=== PATIENT | male | born 1985 | race Caucasian/White ===

== ENCOUNTER 2022-05-24 22:40 | Emergency (ER) | payer BC, SELFPAY ==
[2022-05-24 22:42] VITALS: BP 135/76; PULSE 88; RESP 20; TEMP 36.5; O2SAT 98
--- NOTE | 2022-05-25 00:01 | ED.GENADULT ---
HPI - General Adult General Chief complaint: Back Pain/Injury Stated complaint: Muscles Spasms Back Time Seen by Provider: 05/24/22 22:55 History of Present Illness HPI narrative: This is a 36-year-old gentleman with history of back pain presenting ED with back spasms. Patient was on the floor tripped earlier in the week. He says that he fell and pulled his back at that time. For last several days he has been having intermittent spasms that have severely limited his movement. He has not taken any pain medications. He did try a electro shock therapy that is severe if he worsens his symptoms. He is presenting today for pain relief. The patient denies fever, chills, history of IV drug abuse, history of cancer, any midline tenderness, urinary or bowel incontinence. Related Data Allergies Allergy/AdvReac Type Severity Reaction Status Date / Time No Known Allergies Allergy Unknown Verified 07/09/06 11:57 Review of Systems Review of Systems: CONSTITUTIONAL: Denies night sweats. EYES: No eye pain ENT: Denies rhinorrhea CARDIOVASCULAR: Denies palpitations RESPIRATORY: Denies hemoptysis GASTROINTESTINAL: Denies hematemesis GENITOURINARY: Denies hematuria. SKIN: Denies rash MUSCULOSKELETAL: Denies myalgia. NEUROLOGIC: Denies weakness. PSYCHIATRIC: Denies delusions PMFSH Past Medical History Medical History Back pain Social History Social History (Updated 05/25/22 @ 00:03 by Mateo Burrell MD) Social History: Patient denies alcohol use, smokes pack cigarettes every day and half, use Exam Narrative: APPEARANCE: No apparent distress. Head atraumatic. EYES: PERRLA/EOMI, NOSE: Normal no drainage NECK: Supple, Trachea midline Back: no midline tenderness. The muscles over the right parathoracic spine are tight to the touch. No overlying skin changes. RESPIRATORY: CTAB, No increased work of breathing. CARDIOVASCULAR: S1S2 appreciated ABDOMINAL: Soft, nontender, nondistended, MUSCULOSKELETAl: No obvious deformities NEURO: Alert. Moving 4/4 extremities SKIN:: Warm, dry. Normal color PSYCHIATRIC: Normal affect Course Vital Signs Vital signs: Vital Signs Temperature 97.7 F 05/24/22 22:42 Pulse Rate 88 05/24/22 22:42 Respiratory Rate 20 05/24/22 22:42 Blood Pressure 135/76 05/24/22 22:42 Pulse Oximetry 98 05/24/22 22:42 Oxygen Delivery Room Air 05/24/22 22:42 Temperature 97.7 F 05/24/22 22:42 Pulse Rate 88 05/24/22 22:42 Respiratory Rate 20 05/24/22 22:42 Blood Pressure 135/76 05/24/22 22:42 Pulse Oximetry 98 05/24/22 22:42 Oxygen Delivery Room Air 05/24/22 22:42 Medical Decision Making MDM Narrative Medical decision making narrative: Patient's pain is positional and localized to the back without signs of cord compression or cauda equina. Normal neurologic exams. No fever noted. No significant risk factors for osteomyelitis or spinal epidural abscess. No symptoms or signs suggesting the pain is referred from an abdominal or source. There are no pulsatile masses on exam. Patient ambulates with a steady gait is felt to be a reasonable candidate for continued outpatient management. Vital Signs Vital Signs: Vital Signs Temperature 97.7 F 05/24/22 22:42 Pulse Rate 88 05/24/22 22:42 Respiratory Rate 20 05/24/22 22:42 Blood Pressure 135/76 05/24/22 22:42 Pulse Oximetry 98 05/24/22 22:42 Oxygen Delivery Room Air 05/24/22 22:42 Temperature 97.7 F 05/24/22 22:42 Pulse Rate 88 05/24/22 22:42 Respiratory Rate 20 05/24/22 22:42 Blood Pressure 135/76 05/24/22 22:42 Pulse Oximetry 98 05/24/22 22:42 Oxygen Delivery Room Air 05/24/22 22:42 Discharge Plan Discharge Clinical Impression: Strain of thoracic back region Patient Disposition: Home, Self-Care Condition: Stable Instructions: Antibiotic Form, Back Pain (ED) Additional Instructions:
[2022-05-25] MEDS: CYCLOBENZAPRINE HCL 10 MG TABLET PO (00:07)
[2022-05-25] MEDS: ACETAMINOPHEN 500 MG TABLET 1000 MG PO (00:07)
[2022-05-25] MEDS: IBUPROFEN 400 MG TABLET 800 MG PO (00:08)
== END 2022-05-25 00:27 | disposition home or self-care (01) ==
PROVIDERS: Emergency Provider Emergency Medicine; PCP Family Medicine
DX: S29.012A Strain of muscle and tendon of back wall of thorax, initial encounter (principal); F17.210 Nicotine dependence, cigarettes, uncomplicated; W01.0XXA Fall on same level from slipping, tripping and stumbling without subsequent striking against object, initial encounter
CPT/HCPCS: 99283; A9270

== ENCOUNTER 2022-06-20 09:33 | Outpatient (CLI) | payer BC, SELFPAY ==
--- NOTE | 2022-06-20 13:51 | WPDPFTINT ---
PFT Procedure Performed PFT Procedure Performed Spirometry with Pre/Post Bronchodilator Plethysmography (Lung Vol) Diffusing Cap (DLCO) Flow Vol Loop PFT Interpretation This is a pulmonary function test with pre and post-bronchodilator spirometry, plethysmography and diffusing capacity. The test was performed and results interpreted in accordance with the 2019 and 2005 ATS/ERS Task Force guidelines respectively using the Global Lung Function Initiative-2012 reference equations. Patient demonstrated good effort and cooperation. Reproducibility criteria were met. The quality of the pre bronchodilator spirometry maneuver was Grade B and post bronchodilator spirometry maneuver was Grade A. Findings: Spirometry:The contour the inspiratory and expiratory flow tracing are normal. The pre bronchodilator FVC is 6.86 L, 121% predicted. The pre bronchodilator FEV1 is 5.17 L, 114% predicted. The pre bronchodilator FEV1: FVC ratio is 75%. The post bronchodilator FVC is 6.97 L, representing a 2% increase. The post bronchodilator FEV1 is 5.41 L, representing a 5% increase. The post bronchodilator FEV1: FVC ratio is 78%. Plethysmography: The total lung capacity is 9.42 L, 128% predicted. Functional residual capacity is 4.82 L, 130% predicted. The residual volume was 2.56 L, 133% predicted. Diffusion capacity: The diffusing capacity unadjusted for hemoglobin and carboxyhemoglobin is 36.9, 108% predicted. The diffusing capacity adjusted for alveolar volume is 4.51, 94% predicted. Impression: The spirometry is normal without evidence of an obstructive abnormality. There is no significant improvement after inhaling a single dose of albuterol. The Total lung capacity is increased with a normal functional residual capacity and residual volume. This is an abnormal but nonspecific lung volume pattern. The diffusing capacity is normal. There are no prior studies for comparison
== END 2022-06-20 09:34 | disposition home or self-care (01) ==
PROVIDERS: PCP Family Medicine; Visit Provider Family Medicine
DX: R06.00 Dyspnea, unspecified (principal)
CPT/HCPCS: 94060; 94726; 94729

== ENCOUNTER 2022-07-08 08:05 | Outpatient (CLI) | payer BC, SELFPAY ==
--- NOTE | 2022-07-22 19:07 | WPDHOMESLEEP ---
Sleep Study - Home Unattended Date of Study: 07/08/22 Ordering Provider: Elida Fox DO Interpreting Provider: Elida Fox DO Home Sleep Study Type: Apnea Link Air Height: 1.83 m Weight: 104.326 kg Body Mass Index: 31.1 Neck Circumference (inches): 16 [place]: 20 Reason for Sleep Study Daytime hypersomnia, loud snoring Sleep History The patient is a 37-year-old male with tobacco use that had a sleep study ordered for evaluation of sleep apnea. The patient frequently awakens from sleep short of breath. He frequently awakens at night with heartburn, belching or cough. He frequently snores loud enough that others complain. He frequently has trouble sleeping when he has a cold. He frequently wakes up gasping for air throughout the night. He frequently has breathing problems at night observed by himself or others. He frequently sweats excessively at night. He frequently has heart palpitations or irregular heartbeats during the night. He frequently falls asleep during the day but rarely falls asleep while driving. He frequently has loss of muscle tone when extremely emotional. He occasionally has trouble at school or work due to sleepiness. He denies sleep paralysis and hypnagogic/ hypnopompic hallucinations. He denies having nightmares. He occasionally remembers his dreams. He frequently has thoughts racing through his mind. He rarely feels sad or depressed. He occasionally has anxiety. He denies having muscular tension. He denies noticing parts of his body jerk. He denies kicking during the night. He denies having crawling and aching feelings in his legs as well as leg pain during the night. He rarely grinds his teeth during sleep and never awakens with a morning jaw pain. He denies being bothered by pain during the day and being awakened by pain during the night. He denies waking up feeling stiff in the morning. He rarely wakes up with sore achy muscles. He rarely wakes up with pain in the neck, spine and other joints. He goes to bed between 10:00 p.m. and midnight on both weekdays and weekends. It takes him 30 minutes to fall asleep. He wakes up 5-6 times throughout the night to urinate or smoke a cigarette. It can take him 30 minutes to 2 hours to fall back asleep. He wakes up at 5:30 a.m. on weekdays and between 6:30-7 a.m. on the weekends. He typically gets 5-6 hours of sleep per night. He he will stay in bed for 10-15 minutes after waking up in the morning. He currently lives with his and 4 children. He does not consume any caffeinated beverages within 2 hours of bedtime. He does not engage in physical exercise before bedtime. He denies reading and watching television before falling asleep. He denies taking naps in the afternoon or the evening. He will drink 4-6 cups of caffeinated tea per day. He currently smokes 1 pack of cigarettes per day. He denies alcohol and recreational drug use. 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
[2022-07-23 03:15] VITALS: BMI 31.1
--- NOTE | 2023-03-19 13:40 | SLEEP ---
pt is turning machine into [facility]. pt is obtaining a letter from Dr. Fox
== END 2022-07-10 12:38 | disposition home or self-care (01) ==
PROVIDERS: PCP Family Medicine; Visit Provider Family Medicine
DX: G47.33 Obstructive sleep apnea (adult) (pediatric) (principal)
CPT/HCPCS: 95806

== ENCOUNTER 2022-12-24 15:05 | Outpatient (CLI) | payer OTHER, SELFPAY ==
[2022-12-24 17:35] LABS: Alanine Aminotransferase 32 U/L (6-50); Albumin Level 4.7 g/dL (3.5-5.1); Alkaline Phosphatase 58 U/L (38-126); Anion Gap 6 mmol/L (8-16); Aspartate Amino Transferase 44 U/L (17-59); Bilirubin,Total 0.9 mg/dL (0.2-1.3); Blood Urea Nitrogen 11 mg/dL (9-20); Calcium 9.1 mg/dL (8.4-10.2); Carbon Dioxide 26 mmol/L (22-30); Chloride 103 mmol/L (98-107); Cholesterol 249 mg/dL (0-200); Estimated Glomerular Filt Rate > 60; Glucose 74 mg/dL (65-110); HDL Direct 30 mg/dL; Potassium 3.6 mmol/L (3.4-5.0); Sodium 135 mmol/L (137-145); Triglycerides 224 mg/dL (<150)
[2022-12-24 17:46] LABS: LDL Cholesterol Direct 158 mg/dL
[2022-12-24 18:02] LABS: Thyroid Stimulating Hormone 0.953 uIU/mL (0.465-4.680)
[2022-12-24 18:08] LABS: Basophils Percent Auto 0.4 % (0.2-1.2); Eosinophils Absolute Auto 0.3 K/mm3 (0-0.3); Eosinophils Percent Auto 2.5 % (0-4.4); Hematocrit 44.6 % (42.0-52.0); Hemoglobin 15.5 g/dL (14.0-18.0); Immature Granulocyte Absolute 0.02 K/mm3 (0.00-0.031); Immature Granulocyte Percent A 0.2 % (0-0.5); Lymphocytes Absolute Auto 3.53 K/mm3 (0.9-3.2); Mean Corpuscular HGB Conc 34.8 g/dl (32-36); Monocytes Absolute Auto 0.8 K/mm3 (0.1-0.6); Neutrophils Absolute Auto 6.1 K/mm3 (1.3-6.7); Neutrophils Percent Auto 56.9 % (45.5-73.1); Platelet Count Result 306 k/mm3 (150-375); Red Blood Count 4.85 M/mm3 (4.6-6.20); White Blood Count 10.7 K/mm3 (4.5-10.0)
== END 2022-12-24 15:06 | disposition home or self-care (01) ==
LOC: ANHGOSHLAB 15:07
PROVIDERS: PCP Family Medicine; Visit Provider Clinical Nurse Specialist
DX: Z13.228 Encounter for screening for other metabolic disorders (principal); Z13.220 Encounter for screening for lipoid disorders; R06.00 Dyspnea, unspecified
CPT/HCPCS: 36415; 80053; 80061; 84443; 85025

== ENCOUNTER → 2022-12-24 15:17 | Outpatient (CLI) | payer OTHER, SELFPAY ==
--- NOTE | ~2022-12-24 | XR_ITS ---
XR chest 2V DATE: 12/24/2022 15:32 INDICATION: Right chest pain, shortness of breath TECHNIQUE: 2 views COMPARISON: None FINDINGS: Normal heart size. No hilar or mediastinal enlargement. The lungs are normally inflated and clear of infiltrate or consolidation. No pleural effusion or pulmonary vascular congestion or pneumo thorax. Skeletal structures are unremarkable. IMPRESSION: Negative Reviewed, dictated and finalized at location B. [employer] RE[employer] IMPRESSION: Negative
== END ==
PROVIDERS: PCP Family Medicine; Visit Provider Clinical Nurse Specialist
DX: R07.89 Other chest pain (principal); R06.02 Shortness of breath
CPT/HCPCS: 71046

== ENCOUNTER 2022-12-24 18:48 | Emergency (ER) | payer OTHER, SELFPAY ==
--- NOTE | ~2022-12-24 | XR_ITS ---
EXAMINATION: XR chest 2V Exam Date/Time: 12/24/2022 19:09 LEAD SUSTAINABILITY SPECIALIST HISTORY: R.SIDED CP ON INSPIRATION FOR 1 DAY GETTING WORSE. Comparison: 12/24/2022. RESULT: Lines, tubes, and devices: None. Lungs and pleura: Clear. Cardiomediastinal silhouette: Stable. Other: No acute osseous or upper abdominal finding. IMPRESSION: No acute cardiopulmonary process. Reviewed, dictated and finalized at location K. SUSTAINABILITY SPECIALIST
--- NOTE | 2022-12-24 18:51 | ECG_ITS ---
Measurements Intervals [place] Rate: 82 P: 64 MI: 151 QRS: 66 QRSD: 114 T: 60 QT: 349 QTc: 410 Interpretive Statements SINUS RHYTHM INTRAVENTRICULAR CONDUCTION DELAY BORDERLINE ECG NO PREVIOUS ECG AVAILABLE FOR COMPARISON Electronically Signed On 12-25-2022 14:56:18 SPEECH AND HEARING CLINIC DIRECTOR by Mike Gentile D.O.
[2022-12-24 19:08] VITALS: BP 140/90; PULSE 92; RESP 16; TEMP 36.6; O2SAT 98
[2022-12-24 19:13] LABS: Basophils Percent Auto 0.2 % (0.2-1.2); Eosinophils Absolute Auto 0.3 K/mm3 (0-0.3); Eosinophils Percent Auto 2.4 % (0-4.4); Hematocrit 45.3 % (42.0-52.0); Hemoglobin 15.7 g/dL (14.0-18.0); Immature Granulocyte Absolute 0.03 K/mm3 (0.00-0.031); Immature Granulocyte Percent A 0.2 % (0-0.5); Lymphocytes Absolute Auto 3.24 K/mm3 (0.9-3.2); Lymphocytes Percent Auto 25.5 % (18.3-44.2); Mean Corpuscular HGB Conc 34.7 g/dl (32-36); Mean Corpuscular Hemoglobin 32.8 pg (26-34); Mean Corpuscular Volume 94.6 fl (80-100); Mean Platelet Volume 9.3 fl (7.4-10.4); Monocytes Absolute Auto 0.9 K/mm3 (0.1-0.6); Monocytes Percent Auto 7.3 % (2.6-8.5); Neutrophils Absolute Auto 8.2 K/mm3 (1.3-6.7); Neutrophils Percent Auto 64.4 % (45.5-73.1); Platelet Count Result 314 k/mm3 (150-375); Red Blood Count 4.79 M/mm3 (4.6-6.20); Red Cell Distribution Width 12.1 % (11.5-14.5); White Blood Count 12.7 K/mm3 (4.5-10.0)
[2022-12-24 19:26] LABS: Partial Thromboplastin Time 30.8 SECONDS (22.3-36.8); Prothrombin Time 12.7 Seconds (11.1-14.7)
[2022-12-24 19:32] LABS: Alanine Aminotransferase 31 U/L (6-50); Albumin Level 4.6 g/dL (3.5-5.1); Alkaline Phosphatase 41 U/L (38-126); Anion Gap 7 mmol/L (8-16); Aspartate Amino Transferase 38 U/L (17-59); Bilirubin,Total 1.1 mg/dL (0.2-1.3); Blood Urea Nitrogen 12 mg/dL (9-20); Calcium 9.2 mg/dL (8.4-10.2); Carbon Dioxide 26 mmol/L (22-30); Chloride 103 mmol/L (98-107); Estimated CRCL calculation 121 ml/min; Estimated Glomerular Filt Rate > 60; Glucose 71 mg/dL (65-110); Sodium 136 mmol/L (137-145)
[2022-12-24 19:33] LABS: Lipase 119 U/L (23-300)
[2022-12-24 19:36] LABS: Troponin I < 0.012 ng/mL (0.000-0.034)
--- NOTE | 2022-12-24 22:22 | PC.NURSE ---
patient presented to the intake desk and states he needed to leave to get his kids. i informed patient we would like him to stay and see the provider due to him still having chest pain. patient states he could not wait any longer. patient advised to return to ED if condition worsens and he verbalized understanding.
== END 2022-12-24 23:36 | disposition left against medical advice (07) ==
PROVIDERS: Emergency Provider Emergency Medicine; PCP Family Medicine
DX: R07.9 Chest pain, unspecified (principal); Z53.21 Procedure and treatment not carried out due to patient leaving prior to being seen by health care provider
CPT/HCPCS: 36415; 71046; 80053; 83690; 84484; 85025; 85610; 85730; 93005; 99199